=== PATIENT | male | born 1990 | race Two or more races ===

== ENCOUNTER 2017-09-01 20:47 | Emergency (ER) | payer BC ==
[~2017-09-01] VITALS: Ht 175.3 cm; Wt 72.6 kg
[2017-09-01 20:54] VITALS: BP 121/73
[2017-09-01] MEDS ORDERED: DIPHTH,PERTUSS(ACELL),TET TOX 0.5 ML DISP.SYRIN. VAX IM ONE (21:00)
[2017-09-01] MEDS ORDERED: LIDOCAINE 1% / SOD BICARB 8.4% 20 ML VIAL. IJ ONE (21:00)
--- NOTE | 2017-09-01 21:43 | PHYS DOC ---
Past Medical History Past Medical History: No Pertinent History Past Surgical History: No Surgical History Alcohol Use: None Drug Use: None Adult General Chief Complaint Chief Complaint: LACERATION/AVULSION HPI HPI Patient is a 27 year old male who presents with right hand laceration. Patient was carrying some tile and fell into them breaking them. Patient is right-handed Review of Systems Review of Systems Constitutional: Denies fever or chills [] Musculoskeletal: Denies back pain or joint pain [] Integument: Right hand laceration Neurologic: Denies headache, focal weakness or sensory changes [] Current Medications Current Medications Current Medications Medications (Trade) Dose Ordered Sig/Belle Start Time Stop Time Status Last Admin Dose Admin Diphtheria/ Tetanus/Acell Pertussis (Boostrix) 0.5 ml ONCE ONCE 09/01/17 21:00 09/01/17 21:01 DC 09/01/17 21:09 0.5 ML Lidocaine/Sodium Bicarbonate (Buffered Lidocaine 1%) 20 ml 1X ONCE 09/01/17 21:00 09/01/17 21:01 DC 09/01/17 21:08 20 ML Allergies Allergies Allergies Coded Allergies Type Severity Reaction Last Updated Verified No Known Drug Allergies 09/01/17 No Physical Exam Physical Exam Constitutional: Well developed, well nourished, no acute distress, non-toxic appearance. []] Skin: Patient has a 3 cm laceration in see pertinent beside the right ring finger knuckle. There is no tendon involvement. Adequate flexion and extension of the right ring finger as well as pinky finger. Adequate ulnar sensation to the right ring finger and pinky finger. +2 right radial pulse. Cap refill less than 2 seconds the right fingers. Back: No tenderness, no CVA tenderness. [] Extremities: No tenderness, no cyanosis, no clubbing, ROM intact, no edema. [] Neurologic: Alert and oriented X 3, normal motor function, normal sensory function, no focal deficits noted. [] Psychologic: Affect normal, judgement normal, mood normal. [] Current Patient Data Vital Signs Vital Signs Date Time Temp Pulse Resp B/P (MAP) Pulse Ox O2 Delivery O2 Flow Rate FiO2 09/01/17 20:54 98.4 73 16 99 Room Air 98.4 EKG EKG [] Radiology/Procedures Radiology/Procedures Indication: Right hand laceration Procedure: The patient was placed in the appropriate position and anesthesia around the laceration was 1% buffered lidocaine, the laceration was explored for foreign objects, none was found, the laceration was cleaned with the 100 ML of normal saline and 30 ML of Betadine. The laceration was closed as follows, inner laceration was closed with 2 interrupted sutures using 3. 0 Vicryl, exterior laceration was closed with 9 interrupted sutures using 3. 0 Vicryl. The wound was covered with nonstick dressing. Total repaired wound length: Approximately 3 cm long Other Items:none The patient tolerated the procedure well Complications:none Course & Med Decision Making Course & Med Decision Making Pertinent Labs and Imaging studies reviewed. (See chart for details) Patient has right hand laceration that was closed by me as noted in procedures. Given tetanus in the ED. Provided wound care instructions as well as return precautions. Dragon Disclaimer Dragon Disclaimer This electronic medical record was generated, in whole or in part, using a voice recognition dictation system. Departure Departure Impression: Primary Impression: Laceration of right hand Disposition: HOME, SELF-CARE Condition: STABLE Patient Instructions: Laceration Care, Adult Additional Instructions: You have right hand laceration which was closed with stitches. Keep the area clean and dry. The stitches are dissolvable. The wall disappear in the next 2 weeks. Apply Neosporin to the area. Monitor it for signs and symptoms of infection including but not limited to increased redness to the area, yellow/ odor is drainage from the area, and increased warmth to the area and return to the ED if they occur. Problem Qualifiers Primary Impression: Laceration of right hand Encounter type: initial encounter Foreign body presence: without foreign body Qualified Codes: S61.411A - Laceration without foreign body of right hand , initial encounter [employer] Sep 01, 2017 21:43
== END 2017-09-01 22:03 | disposition home or self-care (01) ==
LOC: ER 20:47
DX: S61.412A Laceration without foreign body of left hand, initial encounter (principal); W26.8XXA Contact with other sharp object(s), not elsewhere classified, initial encounter; Y93.89 Activity, other specified; Y92.89 Other specified places as the place of occurrence of the external cause; Y99.8 Other external cause status
CPT/HCPCS: 12042; 90471; 90715; 99284-25